=== PATIENT | female | born 1980 | race African-American/Black ===

== ENCOUNTER 2018-05-25 09:38 | Emergency (ER) | payer SELFPAY ==
[~2018-05-25] VITALS: Ht 171.4 cm; Wt 73.2 kg
[2018-05-25 09:53] VITALS: Ht 171.4 cm; Wt 73.2 kg
[2018-05-25 10:32] LABS: ALBUMIN 4.2 g/dL (3.4-5.0); ALKALINE PHOSPHATASE 32 U/L (46-116); ALT (SGPT) 86 U/L (10-68); BILIRUBIN - TOTAL 1.35 mg/dL (0.2-1.3); CALC OSMOLALITY 265 mosm/kg (275-300); CALCIUM 9.3 mg/dL (8.5-10.1); CARBON DIOXIDE 27.8 mmol/L (21.0-32.0); CHLORIDE - SERUM 96 mmol/L (98-107); CREATININE - SERUM 0.8 mg/dL (0.6-1.3); GLUCOSE 81 mg/dL (74-106); HCG URINE NEGATIVE (NEGATIVE); PROTEIN - SERUM 8.7 g/dL (6.4-8.2); SODIUM 135 mmol/L (136-145); UREA NITROGEN 4 mg/dL (7-18); eGFR NON AFRICAN AMERICAN 85 mL/min (90-120)
[2018-05-25 10:33] LABS: POTASSIUM - SERUM 3.6 mmol/L (3.5-5.1)
[2018-05-25 10:35] LABS: BASOPHILS 0.7 % (0-2); EOSINOPHILS 0.7 % (0-7); HEMATOCRIT 41.5 % (36.0-48.0); HEMOGLOBIN 14.5 g/dL (12-16); IMMATURE GRANULOCYTES 0.2 % (0-5); MCH 31.7 pg (26.0-34.0); MCHC 34.9 g/dL (31.0-37.0); MCV 90.8 fL (80.0-100.0); MONOCYTES 10.4 % (2-11); PLATELET COUNT 270 10x3/uL (130-400); RBC 4.57 10x6/uL (4.00-5.40); RDW 12.1 % (11.5-14.5); WBC 5.8 10x3/uL (4.8-10.8)
[2018-05-25 10:36] LABS: AMYLASE - SERUM 25 U/L (25-115); LIPASE 86 U/L (73-393); TROPONIN-I < 0.017 ng/mL (0.000-0.060)
[2018-05-25 11:03] LABS: APPEARANCE CLOUDY (CLEAR); BILIRUBIN NEGATIVE (NEGATIVE); COLOR DK YELLOW (YELLOW); GLUCOSE NEGATIVE (NEGATIVE); KETONE LARGE mg/dL (NEGATIVE); NITRITE NEGATIVE (NEGATIVE); PROTEIN 2+ mg/dL (NEGATIVE); SPECIFIC GRAVITY 1.015 (1.005-1.020); UROBILINOGEN NORMAL (NORMAL); WHITE CELLS - URINE 25-50 /hpf (0-5)
[2018-05-25 11:04] LABS: BACTERIA FEW /hpf (NONE SEEN); EPITHELIAL CELLS 0-5 /hpf (0-5); RED CELLS - URINE >50 /hpf (0-5)
[2018-05-25] MEDS ORDERED: CIPRO500 MG PO (15:29)
[2018-05-25] MEDS ORDERED: VOLTAREN75 MG PO (15:29)
[2018-05-25 15:57] VITALS: BP 132/90
== END 2018-05-25 15:55 | disposition home or self-care (01) ==
LOC: D.ER 09:38
PROVIDERS: Family Medicine
DX: J06.9 Acute upper respiratory infection, unspecified (principal); R11.0 Nausea; J02.9 Acute pharyngitis, unspecified; I10 Essential (primary) hypertension

== ENCOUNTER 2018-07-22 01:47 | Emergency (ER) | payer MEDICAID ==
[~2018-07-22] VITALS: Ht 171.4 cm; Wt 74.5 kg
[~2018-07-22 01:47] MED LIST: CIPRO500 MG PO; VOLTAREN75 MG PO
[2018-07-22 01:54] VITALS: Ht 171.4 cm; Wt 74.5 kg
[2018-07-22 02:12] LABS: HEMATOCRIT 43.8 % (36.0-48.0); HEMOGLOBIN 15.5 g/dL (12-16); LYMPHOCYTES 24.2 % (15-50); MCH 31.3 pg (26.0-34.0); MCHC 35.4 g/dL (31.0-37.0); MCV 88.3 fL (80.0-100.0); MEAN PLATELET VOLUME 9.4 fL (7.4-10.4); NEUTROPHILS 65.6 % (40-80); PLATELET COUNT 251 10x3/uL (130-400); RBC 4.96 10x6/uL (4.00-5.40); RDW 11.8 % (11.5-14.5); WBC 5.8 10x3/uL (4.8-10.8)
[2018-07-22 02:29] LABS: ALBUMIN 4.3 g/dL (3.4-5.0); ANION GAP 17.1 mmol/L (8-16); BILIRUBIN - TOTAL 1.38 mg/dL (0.2-1.3); CALCIUM 9.1 mg/dL (8.5-10.1); CARBON DIOXIDE 30.7 mmol/L (21.0-32.0); PROTEIN - SERUM 8.5 g/dL (6.4-8.2)
[2018-07-22 02:32] LABS: POTASSIUM - SERUM 2.8 mmol/L (3.5-5.1)
[2018-07-22 04:07] LABS: HCG URINE NEGATIVE (NEGATIVE)
[2018-07-22 04:09] LABS: APPEARANCE CLOUDY (CLEAR); BILIRUBIN NEGATIVE (NEGATIVE); COLOR YELLOW (YELLOW); GLUCOSE NEGATIVE (NEGATIVE); KETONE LARGE mg/dL (NEGATIVE); NITRITE NEGATIVE (NEGATIVE); PROTEIN 1+ mg/dL (NEGATIVE)
[2018-07-22 04:10] LABS: BACTERIA FEW /hpf (NONE SEEN); EPITHELIAL CELLS 0-5 /hpf (0-5); MUCUS <1+ /lpf (NONE SEEN); RED CELLS - URINE 0-5 /hpf (0-5); WHITE CELLS - URINE >50 /hpf (0-5)
[2018-07-22] MEDS ORDERED: OMNICEF300 MG PO (05:46)
[2018-07-22] MEDS ORDERED: ZOFRAN ODT4 MG/UDTAB PO (05:46)
[2018-07-22 05:57] VITALS: BP 106/58
== END 2018-07-22 05:58 | disposition home or self-care (01) ==
LOC: D.ER 01:47
PROVIDERS: Family Medicine
DX: N39.0 Urinary tract infection, site not specified (principal); R10.9 Unspecified abdominal pain; I10 Essential (primary) hypertension

== ENCOUNTER 2018-11-15 01:14 | Inpatient (IN) | payer OTHER ==
[2018-11-15] VITALS (10 sets, daily range): BP systolic 89–149; BP diastolic 45–91; BMI 23.6
[~2018-11-15 01:14] MED LIST changes: +OMNICEF300 MG PO; +ZOFRAN ODT4 MG/UDTAB PO
--- NOTE | 2018-11-15 02:00 | NUR ---
URINE SENT TO LAB
[2018-11-15 02:22] LABS: BASOPHILS 0.6 % (0-2); EOSINOPHILS 2.8 % (0-7); HEMOGLOBIN 14.1 g/dL (12-16); IMMATURE GRANULOCYTES 0.2 % (0-5); LYMPHOCYTES 31.6 % (15-50); MCH 32.2 pg (26.0-34.0); MCHC 36.2 g/dL (31.0-37.0); MEAN PLATELET VOLUME 9.4 fL (7.4-10.4); MONOCYTES 9.3 % (2-11); NEUTROPHILS 55.5 % (40-80); RBC 4.38 10x6/uL (4.00-5.40); RDW 11.5 % (11.5-14.5); WBC 5.4 10x3/uL (4.8-10.8)
[2018-11-15 02:24] LABS: PLATELET COUNT 200 10x3/uL (130-400)
[2018-11-15 02:34] LABS: ALBUMIN 4.4 g/dL (3.4-5.0); ALKALINE PHOSPHATASE 25 U/L (46-116); ALT (SGPT) 67 U/L (10-68); AMYLASE - SERUM 37 U/L (25-115); BILIRUBIN - TOTAL 1.14 mg/dL (0.2-1.3); CALC OSMOLALITY 267 mosm/kg (275-300); CALCIUM 9.3 mg/dL (8.5-10.1); CARBON DIOXIDE 30.8 mmol/L (21.0-32.0); CHLORIDE - SERUM 92 mmol/L (98-107); CREATININE - SERUM 0.8 mg/dL (0.6-1.3); GLUCOSE 110 mg/dL (74-106); LIPASE 100 U/L (73-393); PROTEIN - SERUM 8.4 g/dL (6.4-8.2); SODIUM 134 mmol/L (136-145); UREA NITROGEN 9 mg/dL (7-18); eGFR NON AFRICAN AMERICAN 84 mL/min (90-120)
[2018-11-15 02:42] LABS: POTASSIUM - SERUM 2.6 mmol/L (3.5-5.1); TROPONIN-I < 0.017 ng/mL (0.000-0.060)
[2018-11-15 04:04] LABS: APPEARANCE CLEAR (CLEAR); BILIRUBIN NEGATIVE (NEGATIVE); COLOR YELLOW (YELLOW); GLUCOSE NEGATIVE (NEGATIVE); KETONE NEGATIVE (NEGATIVE); NITRITE NEGATIVE (NEGATIVE); PROTEIN NEGATIVE (NEGATIVE); SPECIFIC GRAVITY 1.005 (1.005-1.020); UROBILINOGEN NORMAL (NORMAL)
[2018-11-15 04:10] LABS: BACTERIA FEW /hpf (NONE SEEN); EPITHELIAL CELLS RARE /hpf (0-5); RED CELLS - URINE OCC /hpf (0-5); WHITE CELLS - URINE OCC /hpf (0-5)
--- NOTE | 2018-11-15 05:30 | NUR ---
PT TO CT AT THIS TIME VIA WHEELCHAIR.
--- NOTE | 2018-11-15 07:15 | NUR ---
BEDSIDE REPORT HANDED OFF TO SANDY CARRASCO VIA SBAR.
--- NOTE | 2018-11-15 07:15 | NUR ---
BEDSIDE REPORT RECIEVED FROM SANDY SAHA. PT RECIEVING REQUESTED PRN PAIN MEDICATION. DENIES ANY OTHER NEEDS AT THIS TIME.
--- NOTE | 2018-11-15 11:59 | NUR ---
PT GOT IN SHOWER SOON SHE CAME TO ROOM, STATED SHE IS HUNGRY AND WOULD LIKE TO EAT, ADVISED PT SHE IS ON GUT REST RIGHT NOW AND WILL SEE WHAT DR DANG SAYS. BED IN LOW POSITION CL IN REACH PT ALSO RECEIVED PRN PAIN MEDICATIONA ND INQUIRED ON BREAKTHROUGH MEDICATION, ADVISED WE WOULD NEED TO TALK TO DR DANG ABOUT MEDS. CONTINUE WITH PLAN OF CARE
[2018-11-16 00:38] VITALS: BP 119/75
[2018-11-16 05:03] VITALS: BP 117/82
[2018-11-16 06:11] LABS: BASOPHILS 0.3 % (0-2); EOSINOPHILS 2.1 % (0-7); HEMATOCRIT 33.3 % (36.0-48.0); HEMOGLOBIN 11.7 g/dL (12-16); IMMATURE GRANULOCYTES 0.3 % (0-5); LYMPHOCYTES 37.2 % (15-50); MCH 31.5 pg (26.0-34.0); MCHC 35.1 g/dL (31.0-37.0); MCV 89.8 fL (80.0-100.0); MEAN PLATELET VOLUME 9.3 fL (7.4-10.4); MONOCYTES 10.4 % (2-11); NEUTROPHILS 49.7 % (40-80); RBC 3.71 10x6/uL (4.00-5.40); RDW 11.5 % (11.5-14.5)
[2018-11-16 06:32] LABS: ALBUMIN 3.3 g/dL (3.4-5.0); ALKALINE PHOSPHATASE 16 U/L (46-116); BILIRUBIN - TOTAL 0.93 mg/dL (0.2-1.3); CALCIUM 8.2 mg/dL (8.5-10.1); CHLORIDE - SERUM 103 mmol/L (98-107); CREATININE - SERUM 0.7 mg/dL (0.6-1.3); GLUCOSE 94 mg/dL (74-106); SODIUM 141 mmol/L (136-145); eGFR NON AFRICAN AMERICAN > 90 mL/min (90-120)
[2018-11-16 06:37] LABS: PLATELET COUNT 151 10x3/uL (130-400); WBC 3.3 10x3/uL (4.8-10.8)
--- NOTE | 2018-11-16 06:47 | NUR ---
MEDS PER MAR. ALL NEEDS MET.
[2018-11-16 06:54] LABS: ALT (SGPT) 45 U/L (10-68); CALC OSMOLALITY 277 mosm/kg (275-300); PROTEIN - SERUM 5.9 g/dL (6.4-8.2); UREA NITROGEN 4 mg/dL (7-18)
[2018-11-16 06:57] LABS: POTASSIUM - SERUM 2.6 mmol/L (3.5-5.1)
--- NOTE | 2018-11-16 07:22 | NUR ---
PAGE TO DR. MATA OFFICE RE.. CRITICAL POTASSIUM 2.6.
--- NOTE | 2018-11-16 07:45 | NUR ---
ASSESSMENT PER FLOW SHEET. PT IS WITHOUT DISTRESS.CALL LIGHT IN REACH.
[2018-11-16 09:16] VITALS: BP 115/83
--- NOTE | 2018-11-16 12:30 | NUR ---
REPORTS MULTIPLE STOOLS THIS AM PT HAS DRANK MULTIPLE CUPS OF CHICKEN AND BEEF BROTH. WANTS PAIN MEDS WHEN TIME
[2018-11-16 13:37] VITALS: BP 121/76
--- NOTE | 2018-11-16 13:39 | HP ---
PATIENT: KIMBERLY HINES MEDICAL RECORD: [id number] ACCOUNT: [id number] LOCATION:[facility] : [birth year] ADMISSION DATE: 11/15/18 PCP: No PCP HISTORY AND PHYSICAL EXAMINATION DATE OF ADMISSION: 11/15/2018 CHIEF COMPLAINT: Nausea, abdominal pain, and vomiting. HISTORY OF PRESENT ILLNESS: This is a 38-year-old -[place] female who actually went to a walk-in clinic at [facility] on the day before admission here for nausea. Her blood pressure was elevated. She was discharged home. She started having increased nausea, abdominal pain and presented to [facility] where her potassium was found to be 2.6. CT of abdomen and pelvis showed air fluid levels seen throughout nondilated small and large bowel suggesting enteritis and acute diarrhea illness. Actually, the patient denies any diarrhea. She is admitted for her enteritis, ileus, and hypokalemia. PAST MEDICAL AND SURGICAL HISTORY: Hypertension. She states she had colitis 10 years ago. PAST SURGICAL HISTORY: None. DRUG ALLERGIES: None. HOME MEDICATIONS: She states she has been on HCTZ 12.5 mg as needed for high blood pressure. SOCIAL HISTORY: Unemployed, lives with 2 young sons. HABITS: Denies tobacco. She admits to drinking some beer. No illegal drugs. FAMILY HISTORY: Mother is alive with hypertension and father is alive with unknown medical problems. REVIEW OF SYSTEMS: GENERAL: No major weight changes. HEENT: No particular sinus or allergy problems. RESPIRATORY: No history of asthma or emphysema. CARDIAC: No chest pain or history of heart disease. GASTROINTESTINAL: No significant problems with diarrhea, constipation or heartburn. GENITOURINARY: No significant problems there. MUSCULOSKELETAL: Few joint aches and pains. NEUROLOGIC: No migraines or seizures. PSYCHIATRIC: Denies depression or melancholia. PHYSICAL EXAMINATION: VITAL SIGNS: Temperature 99.1, pulse 105, respirations 15, blood pressure 133/93, O2 sat 99%. GENERAL: She is awake and alert. She is feeling better than she was when she presented to the Emergency Department. SKIN: Warm and dry. HEENT: Grossly within normal limits. NECK: Supple. HISTORY AND PHYSICAL [id number] KIMBERLY HINES HEART: Regular rate and rhythm. LUNGS: Clear. ABDOMEN: Lower abdominal tenderness. No guarding, no rebound, no mass. Bowel sounds are hypoactive. EXTREMITIES: No edema. LABORATORY DATA: CBC with a white count of 5400, hemoglobin 14.1, hematocrit 39.0, troponin less than 0.017. Amylase and lipase were both normal. Basic metabolic panel is all normal except potassium is 2.6. Liver functions were all normal. Urinalysis is unremarkable. CT of abdomen and pelvis shows air-fluid level seen throughout, nondilated small and large bowel suggesting enteritis. ASSESSMENT: 1. Enteritis. 2. Ileus. 3. Nausea and vomiting. 4. Hypokalemia. PLAN: We will admit. She is started on Levaquin and Flagyl from the Emergency Department. She was given IV fluids, Zofran p.r.n. She is n.p.o. initially. Other tests and procedures as warranted. TRANSINT:[id number] Voice Confirmation ID: [id number] DOCUMENT ID: [id number] PAULA DANG MD at 1339 CC: [id number] DICTATION DATE: 11/15/182316 PARENT EDUCATOR: 11/16/18 0024 ADM IN [place] [id number] [place] [id number]
[2018-11-16 16:48] VITALS: BP 106/70
--- NOTE | 2018-11-16 18:11 | NUR ---
HAS HAD SHOWER AND PLAYING GAME ON PHONE. SHE IS WITHOUT CHANGE.CONT PLAN OF CARE
[2018-11-16 20:00] VITALS: BP 112/76
--- NOTE | 2018-11-16 20:00 | NUR ---
ASSESSMENT PER FLOWSHEET. SALINE LOCK TO RT HAND. REFUSES SCD'S. ALERT/ORIENTED X3 VISITS WITH RELATIVES. DENIES NEEDS.
--- NOTE | 2018-11-16 21:30 | NUR ---
MEDS GIVEN PER MAR.
--- NOTE | 2018-11-16 23:00 | NUR ---
MEDS PER MAR.UP AD RITA TO BR VOIDS WELL.
[2018-11-17] VITALS: BP 119/77
[2018-11-17 04:00] VITALS: BP 101/71
[2018-11-17 06:19] LABS: BASOPHILS 0.9 % (0-2); EOSINOPHILS 1.4 % (0-7); HEMATOCRIT 33.4 % (36.0-48.0); HEMOGLOBIN 11.7 g/dL (12-16); LYMPHOCYTES 34.6 % (15-50); MCH 31.7 pg (26.0-34.0); MCV 90.5 fL (80.0-100.0); MEAN PLATELET VOLUME 9.1 fL (7.4-10.4); MONOCYTES 8.9 % (2-11); NEUTROPHILS 54.2 % (40-80); PLATELET COUNT 159 10x3/uL (130-400); RBC 3.69 10x6/uL (4.00-5.40); RDW 11.7 % (11.5-14.5); WBC 3.5 10x3/uL (4.8-10.8)
[2018-11-17 06:37] LABS: CALC OSMOLALITY 274 mosm/kg (275-300); CARBON DIOXIDE 26.8 mmol/L (21.0-32.0); CHLORIDE - SERUM 106 mmol/L (98-107); CREATININE - SERUM 0.7 mg/dL (0.6-1.3); GLUCOSE 97 mg/dL (74-106); SODIUM 139 mmol/L (136-145); UREA NITROGEN 3 mg/dL (7-18); eGFR NON AFRICAN AMERICAN > 90 mL/min (90-120)
[2018-11-17 06:39] LABS: POTASSIUM - SERUM 3.6 mmol/L (3.5-5.1)
--- NOTE | 2018-11-17 07:45 | NUR ---
PT IS WITHOUT DISTRESS. SHE IS SLEEPING ON LEFT SIDE.CALL LIGHT IN REACH
[2018-11-17 08:45] VITALS: BP 110/79
--- NOTE | 2018-11-17 09:40 | NUR ---
COMPLAINING OF IV LEAKING AND TENDER.IV DCD PER PT REQUEST WITH CATH TIP INTACT.I DID NOT OBSERVE THE IV LEAKING. DRESSING WAS INTACT AND DRY WHEN IV DCD.
--- NOTE | 2018-11-17 11:25 | NUR ---
IV RESITED TO LEFT FOREARM X1 STICK USING ASEPTIC TECH,22G.
[2018-11-17 12:48] VITALS: BP 109/75
--- NOTE | 2018-11-17 16:23 | MORECARE ---
CASE MANAGEMENT DISCHARGE SUMMARY PATIENT: KIMBERLY HINES UNIT: [id number] ADM DATE: 11/15/18 AGE: 38 : [birth year] SEX: F ROOM/BED: D.2219 AUTHOR: HANNAH BOSCH PHYSICIAN: REFERRING PHYSICIAN: PAULA DANG MD DATE OF SERVICE: 11/17/18 Discharge Plan Patient Name: KIMBERLY HINES [facility] [facility] 1980 Planned Disposition: Home Anticipated Discharge Date: Discharge Date: Expected LOS: Initial Reviewer: [email or web address] Initial Review Date: 11/15/2018 Generated: 11/17/18 5:23 pm DCPIA - Discharge Planning Initial Assessment Updated by [email or web address]: Nithya Lam on 11/17/18 4:21 pm * Is the patient Alert and Oriented? Yes * How many steps to enter\exit or inside your home? * PCP DR AVILA * Pharmacy [facility] * Preadmission Environment Home with Family * ADLs Independent * Equipment None * List name and contact numbers for known caregivers / representatives who currently or will assist patient after discharge: ALEX HINES (MOM) [phone] * Verbal permission to speak to the caregivers and representatives has been obtained from the patient. N/A * Community resources currently utilized None * Additional services required to return to the preadmission environment? No * Can the patient safely return to the preadmission environment? Yes * Has this patient been hospitalized within the prior 30 days at any hospital? No Patient Name: KIMBERLY HINES Page [id number] at 1623 All edits/amendments must be made on the electronic document DICTATION DATE: 11/17/181621 DRAMATIC COACH: ROSELINE 11/17/181621 RPT#: [id number] DC DATE: STATUS: ADM IN [facility] [address] [place] [address] END OF REPORT
--- NOTE | 2018-11-17 16:33 | MORECARE ---
CASE MANAGEMENT DISCHARGE SUMMARY PATIENT: KIMBERLY HINES UNIT: [id number] ADM DATE: 11/15/18 AGE: 38 : [birth year] SEX: F ROOM/BED: D.2219 AUTHOR: HIRODOC PHYSICIAN: REFERRING PHYSICIAN: PAULA DANG MD DATE OF SERVICE: 11/17/18 Discharge Plan Patient Name: KIMBERLY HINES Facility: [facility]:[place] : 1980 Planned Disposition: Home Anticipated Discharge Date: Discharge Date: Expected LOS: Initial Reviewer: [email or web address] Initial Review Date: 11/15/2018 Generated: 11/17/18 5:32 pm Comments DCP- Discharge Planning Updated by [email or web address]: Nithya Lam on 11/17/18 3:[address] Patient Name: KIMBERLY HINES Admission Status: ER Accout number: [id number] Admission Date: 11-15-2018 : 1980 Admission Diagnosis: Attending: PAULA DANG Current LOS: 2 Anticipated DC Date: Planned Disposition: Home Primary Insurance: [email or web address] INS EXCHANGE Discharge Planning Comments: CM met with patient to complete initial dc planning assessment. CM educated patient on the CM role and verbal consent given by patient to complete assessment. Patient lives at home with her children where she is independent. At discharge patient plans to return home and feels this is a safe discharge. Her brother will be her motorcoach driver home. She does have a cpap that she got from [facility] in . CM discussed availability of home health, rehab services, and medical equipment. Patient denied known discharge needs at this time. CM will continue to follow and will assist as needed with dc plans/needs. Band Tacker: Nithya Lam DCPIA - Discharge Planning Initial Assessment Updated by [email or web address]: Nithya Lam on 11/17/18 4:21 pm * Is the patient Alert and Oriented? Yes * How many steps to enter\exit or inside your home? * PCP DR AVILA * Pharmacy [facility] * Preadmission Environment Home with Family * ADLs Independent * Equipment None * List name and contact numbers for known caregivers / representatives who currently or will assist patient after discharge: ALEX HINES (MOM) [phone] * Verbal permission to speak to the caregivers and representatives has been obtained from the patient. N/A * Community resources currently utilized None * Additional services required to return to the preadmission environment? No * Can the patient safely return to the preadmission environment? Yes * Has this patient been hospitalized within the prior 30 days at any hospital? No Last DP export: 11/17/18 3:23 pm Patient Name: KIMBERLY HINES Page [phone] at 1633 All edits/amendments must be made on the electronic document DICTATION DATE: 11/17/181631 LIQUEFACTION AND REGASIFICATION HELPER: ROSELINE 11/17/181631 RPT#: [id number] DC DATE: STATUS: ADM IN [facility] [address] [place] [address] END OF REPORT
[2018-11-17 16:35] VITALS: BP 120/83
--- NOTE | 2018-11-17 17:40 | NUR ---
REMAINS WITHOUT NEEDS.WITHOUT CHANGE FROM INITIAL SHIFT ASSESSMENT.CONT PLAN OF CARE
--- NOTE | 2018-11-17 19:37 | NUR ---
SITTING UP IN BED. NO COMPLAITNS VOICED.IV TO LFA WITHOUT REDNESS OR EDEMA NOTED. CL IN REACH
[2018-11-17 20:00] VITALS: BP 136/88
[2018-11-18] VITALS: BP 125/77
[2018-11-18 04:00] VITALS: BP 128/83
[2018-11-18 05:12] LABS: BASOPHILS 0.8 % (0-2); EOSINOPHILS 1.6 % (0-7); HEMATOCRIT 31.9 % (36.0-48.0); HEMOGLOBIN 11.4 g/dL (12-16); IMMATURE GRANULOCYTES 0.3 % (0-5); LYMPHOCYTES 38.7 % (15-50); MCH 31.8 pg (26.0-34.0); MCHC 35.7 g/dL (31.0-37.0); MCV 89.1 fL (80.0-100.0); MEAN PLATELET VOLUME 8.8 fL (7.4-10.4); MONOCYTES 8.9 % (2-11); NEUTROPHILS 49.7 % (40-80); PLATELET COUNT 152 10x3/uL (130-400); RBC 3.58 10x6/uL (4.00-5.40); RDW 11.5 % (11.5-14.5); WBC 3.8 10x3/uL (4.8-10.8)
[2018-11-18 05:41] LABS: CALC OSMOLALITY 275 mosm/kg (275-300); CALCIUM 8.6 mg/dL (8.5-10.1); CARBON DIOXIDE 23.9 mmol/L (21.0-32.0); CHLORIDE - SERUM 104 mmol/L (98-107); CREATININE - SERUM 0.8 mg/dL (0.6-1.3); GLUCOSE 99 mg/dL (74-106); SODIUM 140 mmol/L (136-145); UREA NITROGEN 3 mg/dL (7-18); eGFR NON AFRICAN AMERICAN 84 mL/min (90-120)
[2018-11-18 05:42] LABS: POTASSIUM - SERUM 2.9 mmol/L (3.5-5.1)
--- NOTE | 2018-11-18 08:00 | NUR ---
PATIENT IN BED WITH EYES CLOSED RESTING AT THIS TIME. NO COMPLAINTS. CALL LIGHT WITHIN REACH.
--- NOTE | 2018-11-18 12:27 | NUR ---
PATIENT RECIEVED MORPHINE AND ZOFRAN FOR PAIN AND NAUSEA. STATED THAT SHE DIDNT FEEL SICK BC OF FULL LIQUIDS, JUST THE ANTIBIOTICS. IV INTACT. NO COMPLAINTS. CALL IGHT WITHIN REACH.
[2018-11-18 12:48] VITALS: BP 116/89
[2018-11-18 16:45] VITALS: BP 111/75
--- NOTE | 2018-11-18 17:58 | NUR ---
PATIENT SITTING UP ON THE SIDE OF THE BED WITH NO COMPLAINTS OR PROBLEMS. IV INTACT. CALL LIGHT WITHIN REACH.
--- NOTE | 2018-11-18 19:15 | NUR ---
RECEIVED CARE FROM DAY NURSE. REQUEST TO DISCONNECTED TO AMBULATE. DONE AT THIS TIME. NO OTHER NEEDS VOICED AT THIS TIME.
[2018-11-18 19:50] VITALS: BP 137/74
[2018-11-19] VITALS: BP 120/78
--- NOTE | 2018-11-19 00:58 | NUR ---
I have reviewed this patient and I concur with the Shift Assessment completed by the Licensed Practical Nurse today this shift.
[2018-11-19 04:00] VITALS: BP 121/87
[2018-11-19 05:01] LABS: BASOPHILS 0.5 % (0-2); EOSINOPHILS 1.6 % (0-7); HEMATOCRIT 32.4 % (36.0-48.0); HEMOGLOBIN 11.5 g/dL (12-16); LYMPHOCYTES 43.3 % (15-50); MCH 31.9 pg (26.0-34.0); MCHC 35.5 g/dL (31.0-37.0); MCV 89.8 fL (80.0-100.0); MEAN PLATELET VOLUME 9.3 fL (7.4-10.4); MONOCYTES 8.9 % (2-11); NEUTROPHILS 45.7 % (40-80); PLATELET COUNT 170 10x3/uL (130-400); RBC 3.61 10x6/uL (4.00-5.40); RDW 11.8 % (11.5-14.5); WBC 4.3 10x3/uL (4.8-10.8)
[2018-11-19 05:11] LABS: CALC OSMOLALITY 277 mosm/kg (275-300); CALCIUM 8.7 mg/dL (8.5-10.1); CARBON DIOXIDE 24.3 mmol/L (21.0-32.0); CHLORIDE - SERUM 107 mmol/L (98-107); CREATININE - SERUM 0.7 mg/dL (0.6-1.3); GLUCOSE 100 mg/dL (74-106); SODIUM 141 mmol/L (136-145); UREA NITROGEN 3 mg/dL (7-18); eGFR NON AFRICAN AMERICAN > 90 mL/min (90-120)
[2018-11-19 05:17] LABS: POTASSIUM - SERUM 3.6 mmol/L (3.5-5.1)
--- NOTE | 2018-11-19 10:35 | NUR ---
PT SITTING UP IN BED, PER FINISH PATCHER PT REFUSES TO WAKE UP IN MORNINGS FOR VS AND HAS BEEN DOING THIS FOR SEVERAL DAYS BUT GOT UP AND WANTED SHOWER AT 8AM. PT HAS REQUESTED TO BE ON REGULAR DIET, NO S/S OF DISTRESS ADVISED I WILL LET KNOW WHEN HE MAKES ROUNDS
[2018-11-19] MEDS ORDERED: LEVOFLOXACIN500 MG PO (11:16)
[2018-11-19] MEDS ORDERED: FLAGYL500 MG PO (11:17)
--- NOTE | 2018-11-19 12:03 | NUR ---
SPOKE WITH DR DANG RE PT'S DIET UPON D/C. HE REC REGULAR DIET OK
--- NOTE | 2018-11-21 08:21 | MORECARE ---
CASE MANAGEMENT DISCHARGE SUMMARY PATIENT: KIMBERLY HINES UNIT: [id number] ADM DATE: 11/15/18 AGE: 38 : 76 SEX: F ROOM/BED: D.2219 AUTHOR: HIRODOC PHYSICIAN: REFERRING PHYSICIAN: PAULA DANG MD DATE OF SERVICE: 11/21/18 Discharge Plan Patient Name: KIMBERLY HINES Facility: [facility]:[place] : 1980 Planned Disposition: Home Anticipated Discharge Date: Discharge Date: 11/19/2018 Expected LOS: Initial Reviewer: [email or web address] Initial Review Date: 11/15/2018 Generated: 11/21/18 9:21 am Comments DCP- Discharge Planning Updated by [email or web address]: Nithya Lam on 11/17/18 3:[address] Patient Name: KIMBERLY HINES Admission Status: ER Accout number: [id number] Admission Date: 11-15-2018 : 1980 Admission Diagnosis: Attending: PAULA DANG Current LOS: 2 Anticipated DC Date: Planned Disposition: Home Primary Insurance: [employer] INS EXCHANGE Discharge Planning Comments: CM met with patient to complete initial dc planning assessment. CM educated patient on the CM role and verbal consent given by patient to complete assessment. Patient lives at home with her children where she is independent. At discharge patient plans to return home and feels this is a safe discharge. Her brother will be her delivery driver/customer service home. She does have a cpap that she got from [facility] in . CM discussed availability of home health, rehab services, and medical equipment. Patient denied known discharge needs at this time. CM will continue to follow and will assist as needed with dc plans/needs. Agricultural Engineer: Nithya Lam DCPIA - Discharge Planning Initial Assessment Updated by [email or web address]: Nithya Lam on 11/17/18 4:21 pm * Is the patient Alert and Oriented? Yes * How many steps to enter\exit or inside your home? * PCP DR AVILA * Pharmacy [facility] [employer] [facility] * Preadmission Environment Home with Family * ADLs Independent * Equipment None * List name and contact numbers for known caregivers / representatives who currently or will assist patient after discharge: ALEX HINES ([facility]) [phone] * Verbal permission to speak to the caregivers and representatives has been obtained from the patient. N/A * Community resources currently utilized None * Additional services required to return to the preadmission environment? No * Can the patient safely return to the preadmission environment? Yes * Has this patient been hospitalized within the prior 30 days at any hospital? No Last DP export: 11/17/18 3:33 pm Patient Name: KIMBERLY HINES Page [phone] at 0821 All edits/amendments must be made on the electronic document DICTATION DATE: 11/21/18820 SOLAR SALES ASSESSOR: ROSELINE 11/21/18820 RPT#: [id number] DC DATE:11/19/18 STATUS: DIS IN [facility] [address] [place] [address] END OF REPORT
== END 2018-11-19 12:24 | disposition home or self-care (01) | DRG 392 ==
LOC: D.ER 01:14 → D.EDHOLD 06:36 → D.MS 06:36
PROVIDERS: Family Medicine; ADMIT Family Medicine; ATTEND Family Medicine
DX: K52.9 Noninfective gastroenteritis and colitis, unspecified (principal); K56.7 Ileus, unspecified; I10 Essential (primary) hypertension; E87.6 Hypokalemia

== ENCOUNTER 2019-03-09 15:00 | Emergency (ER) | payer OTHER ==
[~2019-03-09] VITALS: Ht 171.4 cm; Wt 70.0 kg
[~2019-03-09 15:00] MED LIST changes: +FLAGYL500 MG PO; +LEVOFLOXACIN500 MG PO
[2019-03-09 15:15] VITALS: Ht 171.4 cm; Wt 70.0 kg
[2019-03-09] MEDS ORDERED: HCTZ25 MG PO (15:18)
[2019-03-09] MEDS ORDERED: FOLIC ACID1 MG PO (15:18)
[2019-03-09] MEDS ORDERED: CIPRO500 MG PO (15:19)
[2019-03-09 16:25] LABS: BASOPHILS 0.6 % (0-2); EOSINOPHILS 0.6 % (0-7); HEMATOCRIT 35.1 % (36.0-48.0); HEMOGLOBIN 12.7 g/dL (12-16); IMMATURE GRANULOCYTES 0.2 % (0-5); MCH 32.6 pg (26.0-34.0); MCHC 36.2 g/dL (31.0-37.0); MCV 90.2 fL (80.0-100.0); MEAN PLATELET VOLUME 9.2 fL (7.4-10.4); MONOCYTES 7.1 % (2-11); NEUTROPHILS 69.5 % (40-80); PLATELET COUNT 240 10x3/uL (130-400); RBC 3.89 10x6/uL (4.00-5.40); RDW 12.2 % (11.5-14.5); WBC 6.4 10x3/uL (4.8-10.8)
[2019-03-09 16:36] LABS: ALBUMIN 4.3 g/dL (3.4-5.0); ALKALINE PHOSPHATASE 29 U/L (46-116); ALT (SGPT) 68 U/L (10-68); AMYLASE - SERUM 47 U/L (25-115); CALC OSMOLALITY 273 mosm/kg (275-300); CARBON DIOXIDE 33.1 mmol/L (21.0-32.0); CHLORIDE - SERUM 95 mmol/L (98-107); CREATININE - SERUM 0.8 mg/dL (0.6-1.3); GLUCOSE 95 mg/dL (74-106); LIPASE 164 U/L (73-393); SODIUM 138 mmol/L (136-145); UREA NITROGEN 8 mg/dL (7-18); eGFR NON AFRICAN AMERICAN 84 mL/min (90-120)
[2019-03-09 16:40] LABS: POTASSIUM - SERUM 2.8 mmol/L (3.5-5.1); TROPONIN-I < 0.017 ng/mL (0.000-0.060)
[2019-03-09 16:46] LABS: APPEARANCE CLEAR (CLEAR); BILIRUBIN NEGATIVE (NEGATIVE); COLOR STRAW (YELLOW); GLUCOSE NEGATIVE (NEGATIVE); KETONE NEGATIVE (NEGATIVE); NITRITE NEGATIVE (NEGATIVE); PROTEIN NEGATIVE (NEGATIVE); SPECIFIC GRAVITY 1.005 (1.005-1.020)
[2019-03-09 16:47] LABS: BACTERIA FEW /hpf (NONE SEEN); EPITHELIAL CELLS 0-5 /hpf (0-5); RED CELLS - URINE OCC /hpf (0-5); WHITE CELLS - URINE OCC /hpf (0-5)
[2019-03-09 18:21] LABS: HCG URINE NEGATIVE (NEGATIVE)
[2019-03-09] MEDS ORDERED: MACROBID100 MG PO (18:46)
[2019-03-09 20:15] VITALS: BP 121/85
== END 2019-03-09 19:58 | disposition home or self-care (01) ==
LOC: D.ER 15:00
PROVIDERS: Family Medicine
DX: K59.00 Constipation, unspecified (principal); N39.0 Urinary tract infection, site not specified

== ENCOUNTER 2019-04-03 07:36 | Emergency (ER) | payer OTHER ==
[~2019-04-03] VITALS: Ht 171.4 cm; Wt 70.0 kg
[~2019-04-03 07:36] MED LIST changes: +FOLIC ACID1 MG PO; +HCTZ25 MG PO; +MACROBID100 MG PO
[2019-04-03 07:37] VITALS: Ht 171.4 cm; Wt 70.0 kg
[2019-04-03 08:17] LABS: BASOPHILS 0.6 % (0-2); EOSINOPHILS 1.2 % (0-7); HEMOGLOBIN 13.1 g/dL (12-16); IMMATURE GRANULOCYTES 0.2 % (0-5); LYMPHOCYTES 13.9 % (15-50); MCH 33.2 pg (26.0-34.0); MCHC 36.4 g/dL (31.0-37.0); MCV 91.1 fL (80.0-100.0); MEAN PLATELET VOLUME 8.9 fL (7.4-10.4); MONOCYTES 7.3 % (2-11); NEUTROPHILS 76.8 % (40-80); PLATELET COUNT 233 10x3/uL (130-400); RBC 3.95 10x6/uL (4.00-5.40); RDW 12.8 % (11.5-14.5); WBC 6.4 10x3/uL (4.8-10.8)
[2019-04-03 08:29] LABS: ALBUMIN 4.4 g/dL (3.4-5.0); ALKALINE PHOSPHATASE 33 U/L (46-116); ALT (SGPT) 101 U/L (10-68); AMYLASE - SERUM 36 U/L (25-115); BILIRUBIN - TOTAL 1.64 mg/dL (0.2-1.3); CALC OSMOLALITY 281 mosm/kg (275-300); CALCIUM 9.5 mg/dL (8.5-10.1); CARBON DIOXIDE 29.8 mmol/L (21.0-32.0); CHLORIDE - SERUM 98 mmol/L (98-107); CREATININE - SERUM 0.6 mg/dL (0.6-1.3); GLUCOSE 80 mg/dL (74-106); LIPASE 80 U/L (73-393); PROTEIN - SERUM 8.1 g/dL (6.4-8.2); SODIUM 143 mmol/L (136-145); UREA NITROGEN 8 mg/dL (7-18); eGFR NON AFRICAN AMERICAN > 90 mL/min (90-120)
[2019-04-03 08:30] LABS: TROPONIN-I < 0.017 ng/mL (0.000-0.060)
[2019-04-03 08:31] LABS: HCG URINE NEGATIVE (NEGATIVE)
[2019-04-03 08:32] LABS: POTASSIUM - SERUM 2.8 mmol/L (3.5-5.1)
[2019-04-03 08:33] LABS: APPEARANCE HAZY (CLEAR); COLOR DK YELLOW (YELLOW); GLUCOSE NEGATIVE (NEGATIVE); NITRITE NEGATIVE (NEGATIVE); PROTEIN 1+ mg/dL (NEGATIVE); SPECIFIC GRAVITY 1.025 (1.005-1.020)
[2019-04-03 08:34] LABS: BILIRUBIN NEGATIVE (NEGATIVE); KETONE LARGE mg/dL (NEGATIVE); UROBILINOGEN NORMAL (NORMAL)
[2019-04-03 08:37] LABS: BACTERIA FEW /hpf (NONE SEEN); MUCUS <1+ /lpf (NONE SEEN); RED CELLS - URINE 0-5 /hpf (0-5); WHITE CELLS - URINE 0-5 /hpf (0-5)
[2019-04-03 08:42] LABS: APTT 24.4 SECONDS (22.8-39.4); INR 1.03 (0.85-1.17)
[2019-04-03] MEDS ORDERED: ZANTAC300 MG PO (10:30)
[2019-04-03] MEDS ORDERED: POTASSIUM CHLO10 ME1 PO (10:32)
[2019-04-03 10:44] VITALS: BP 127/80
== END 2019-04-03 10:44 | disposition home or self-care (01) ==
LOC: D.ER 07:36
PROVIDERS: Family Medicine
DX: R10.9 Unspecified abdominal pain (principal); I10 Essential (primary) hypertension; E87.6 Hypokalemia; F10.10 Alcohol abuse, uncomplicated; E88.89 Other specified metabolic disorders

== ENCOUNTER 2019-07-20 07:14 | Emergency (ER) | payer OTHER ==
[~2019-07-20] VITALS: Ht 171.4 cm; Wt 68.2 kg
[~2019-07-20 07:14] MED LIST changes: +POTASSIUM CHLO10 ME1 PO; +ZANTAC300 MG PO
[2019-07-20 07:15] VITALS: Ht 171.4 cm; Wt 68.2 kg
[2019-07-20] MEDS ORDERED: LIPITOR20 MG PO (07:17)
[2019-07-20 08:01] LABS: BASOPHILS 0.3 % (0-2); EOSINOPHILS 0.1 % (0-7); HEMATOCRIT 40.3 % (36.0-48.0); HEMOGLOBIN 14.4 g/dL (12-16); IMMATURE GRANULOCYTES 0.3 % (0-5); LYMPHOCYTES 9.5 % (15-50); MCH 32.2 pg (26.0-34.0); MCHC 35.7 g/dL (31.0-37.0); MCV 90.2 fL (80.0-100.0); MONOCYTES 7.7 % (2-11); NEUTROPHILS 82.1 % (40-80); RBC 4.47 10x6/uL (4.00-5.40); WBC 11.3 10x3/uL (4.8-10.8)
[2019-07-20 08:09] LABS: HCG SERUM NEGATIVE (NEGATIVE)
[2019-07-20 08:13] LABS: PLATELET COUNT 290 10x3/uL (130-400)
[2019-07-20 08:14] LABS: ALBUMIN 4.2 g/dL (3.4-5.0); ALKALINE PHOSPHATASE 37 U/L (46-116); ALT (SGPT) 67 U/L (10-68); AMYLASE - SERUM 28 U/L (25-115); BILIRUBIN - TOTAL 1.26 mg/dL (0.2-1.3); CALC OSMOLALITY 271 mosm/kg (275-300); CALCIUM 9.1 mg/dL (8.5-10.1); CARBON DIOXIDE 34.1 mmol/L (21.0-32.0); CHLORIDE - SERUM 89 mmol/L (98-107); CREATININE - SERUM 0.7 mg/dL (0.6-1.3); GLUCOSE 118 mg/dL (74-106); LIPASE 85 U/L (73-393); PROTEIN - SERUM 8.7 g/dL (6.4-8.2); SODIUM 136 mmol/L (136-145); UREA NITROGEN 9 mg/dL (7-18); eGFR NON AFRICAN AMERICAN > 90 mL/min (90-120)
[2019-07-20 08:21] LABS: POTASSIUM - SERUM 2.7 mmol/L (3.5-5.1)
[2019-07-20 08:28] LABS: APPEARANCE CLOUDY (CLEAR); BACTERIA MODERATE /hpf (NEGATIVE); BILIRUBIN NEGATIVE (NEGATIVE); COLOR YELLOW (YELLOW); EPITHELIAL CELLS 0-5 /hpf (0-5); GLUCOSE NEGATIVE (NEGATIVE); HYALINE CAST RARE /lpf (NONE SEEN); KETONE MODERATE mg/dL (NEGATIVE); MUCUS <1+ /lpf (NONE SEEN); NITRITE NEGATIVE (NEGATIVE); PROTEIN 1+ mg/dL (NEGATIVE); RED CELLS - URINE 0-5 /hpf (0-5); SPECIFIC GRAVITY 1.015 (1.005-1.020); WHITE CELLS - URINE 0-5 /hpf (NEGATIVE)
[2019-07-20] MEDS ORDERED: ZOFRAN ODT4 MG/UDTAB PO (08:54)
[2019-07-20] MEDS ORDERED: HYDROCODON-ACE1 EAC7 PO (08:54)
[2019-07-20 09:02] VITALS: BP 145/87
== END 2019-07-20 09:40 | disposition home or self-care (01) ==
LOC: D.ER 07:14
PROVIDERS: Emergency Medicine
DX: R10.9 Unspecified abdominal pain (principal); E87.6 Hypokalemia; R11.10 Vomiting, unspecified; I10 Essential (primary) hypertension

== ENCOUNTER 2020-01-31 08:52 | Emergency (ER) | payer OTHER ==
[~2020-01-31] VITALS: Ht 171.4 cm; Wt 68.2 kg
[~2020-01-31 08:52] MED LIST changes: +HYDROCODON-ACE1 EAC7 PO; +LIPITOR20 MG PO
[2020-01-31 08:55] VITALS: Ht 171.4 cm; Wt 68.2 kg
[2020-01-31 10:08] LABS: HEMATOCRIT 41.9 % (36.0-48.0); HEMOGLOBIN 14.3 g/dL (12-16); LYMPHOCYTES 13.5 % (15-50); MCH 31.6 pg (26.0-34.0); MCHC 34.1 g/dL (31.0-37.0); MCV 92.7 fL (80.0-100.0); MEAN PLATELET VOLUME 8.8 fL (7.4-10.4); NEUTROPHILS 78.9 % (40-80); RBC 4.52 10x6/uL (4.00-5.40); WBC 5.4 10x3/uL (4.8-10.8)
[2020-01-31 10:09] LABS: PLATELET COUNT 223 10x3/uL (130-400)
[2020-01-31] MEDS ORDERED: ZYRTEC10 MG PO (10:15)
[2020-01-31] MEDS ORDERED: AMOXICILLIN875 MG PO (10:15)
[2020-01-31 10:16] LABS: CALC OSMOLALITY 276 mosm/kg (275-300); CALCIUM 9.7 mg/dL (8.5-10.1); CARBON DIOXIDE 29.2 mmol/L (21.0-32.0); CHLORIDE - SERUM 97 mmol/L (98-107); CREATININE - SERUM 0.8 mg/dL (0.6-1.3); GLUCOSE 108 mg/dL (74-106); POTASSIUM - SERUM 3.4 mmol/L (3.5-5.1); SODIUM 139 mmol/L (136-145); UREA NITROGEN 6 mg/dL (7-18); eGFR NON AFRICAN AMERICAN 84 mL/min (90-120)
[2020-01-31 10:22] LABS: ALBUMIN 4.8 g/dL (3.4-5.0); ALKALINE PHOSPHATASE 36 U/L (30-120); ALT (SGPT) 94 U/L (10-68); BILIRUBIN - TOTAL 1.25 mg/dL (0.2-1.3); PROTEIN - SERUM 8.3 g/dL (6.4-8.2)
[2020-01-31 11:07] VITALS: BP 105/73
== END 2020-01-31 11:08 | disposition home or self-care (01) ==
LOC: D.ER 08:52
PROVIDERS: Emergency Medicine
DX: T67.5XXA Heat exhaustion, unspecified, initial encounter (principal); H65.03 Acute serous otitis media, bilateral; I95.89 Other hypotension; I10 Essential (primary) hypertension

== ENCOUNTER 2021-01-11 08:33 | Outpatient (CLI) | payer OTHER ==
[2020-08-31 18:24] VITALS: Ht 167.6 cm; Wt 73.5 kg
[~2021-01-11] VITALS: Ht 167.6 cm; Wt 73.5 kg
[~2021-01-11 08:33] MED LIST changes: +AMOXICILLIN875 MG PO; +ZYRTEC10 MG PO
[2021-01-11 10:48] LABS: BILIRUBIN NEGATIVE (NEGATIVE); KETONE 3+ mg/dL (< 1+); NITRITE NEGATIVE (NEGATIVE); PH 6.5 (5.0-8.0); SQUAMOUS EPITHELIAL 15 HPF (0-4); UROBILINOGEN NORMAL mg/dL (< 2); WHITE CELLS - URINE 3 HPF (0-4)
[2021-01-11 11:00] LABS: UDS - AMPHET NEGATIVE QUAL (NEGATIVE); UDS - BARB NEGATIVE QUAL (NEGATIVE); UDS - BENZO NEGATIVE QUAL (NEGATIVE); UDS - OPIATE NEGATIVE QUAL (NEGATIVE); UDS - PCP NEGATIVE QUAL (NEGATIVE); UDS - THC NEGATIVE QUAL (NEGATIVE)
[2021-01-11 11:07] LABS: UDS - COCAINE POSITIVE QUAL (NEGATIVE)
== END 2021-01-11 14:20 | disposition home or self-care (01) ==
LOC: D.LDO 08:33
PROVIDERS: ATTEND Student in an Organized Health Care Education/Training Program
DX: O26.899 Other specified pregnancy related conditions, unspecified trimester (principal); M54.5 Low back pain